=== PATIENT | male | born 2000 | race Hispanic/Latino ===

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

== ENCOUNTER 2023-03-06 07:07 | Outpatient (CLI) | payer BC | END 2023-03-06 07:08 | disposition home or self-care (01) | LOC: BICULT 07:07 | PROVIDERS: ATTEND Family Medicine Sports Medicine | DX: R10.32 Left lower quadrant pain (principal) | CPT/HCPCS: 76870; 93976 ==